=== PATIENT | male | born 1985 | race African-American/Black ===

== ENCOUNTER 2017-08-07 08:45 | Emergency (ER) | payer BC, OTHER ==
--- NOTE | 2017-08-07 08:50 | EDM.PDOC ---
ED HPI GENERAL MEDICAL PROBLEM - General Stated Complaint: RIGHT LEG PAIN Time Seen by Provider: 08/07/17 08:49 Source of Information: Reports: Patient History Limitations: Reports: No Limitations - History of Present Illness INITIAL COMMENTS - FREE TEXT/NARRATIVE: History of present illness: []Patient drove back from [place] yesterday and when he got the car he felt sharp right hip pain radiating to his right lateral thigh down to his knee. He denies any tingling or injury. Patient denies any lumbar pain, trauma, urinary or fecal incontinence, leg swelling or fevers. Review of systems: As per history of present illness and below otherwise all systems reviewed and negative. Past medical history: As per history of present illness and as reviewed below otherwise noncontributory. Surgical history: As per history of present illness and as reviewed below otherwise noncontributory. Social history: No reported history of drug or alcohol abuse. Family history: As per history of present illness and as reviewed below otherwise noncontributory. Physical exam: General: Well developed, well nourished in NAD HEENT: Atraumatic, normocephalic, pupils reactive, negative for conjunctival pallor or scleral icterus, mucous membranes moist, throat clear, neck supple, nontender, trachea midline. Lungs: Clear to auscultation, breath sounds equal bilaterally, chest nontender. Heart: S1S2, regular, negative for clicks, rubs, or JVD. Abdomen: Soft, nondistended, nontender. Negative for masses or hepatosplenomegaly. Negative for costovertebral tenderness. No vertebral tenderness to palpation Pelvis: Stable nontender. Genitourinary: Deferred. Rectal: Deferred. Extremities: Atraumatic, pain with movement of the hip, negative for cords or calf pain. Neurovascular unremarkable. Neuro: Awake, alert, oriented. Cranial nerves II through XII unremarkable. Cerebellum unremarkable. Motor and sensory unremarkable throughout. Exam nonfocal. Diagnostics: []X-ray right hip negative Therapeutics: []Toradol for pain Impression: []Right-sided sciatica Plan: []Diclofenac and Flexeril, follow-up with primary care return if symptoms worsen or change. Definitive disposition and diagnosis as appropriate pending reevaluation and review of above. Right Upper Leg Pain Score (Numeric/FACES): 9 - Related Data Allergies Allergy/AdvReac Type Severity Reaction Status Date / Time No Known Allergies Allergy Verified 08/07/17 08:58 Home Meds: Home Meds Cyclobenzaprine [Flexeril] 10 mg PO BID PRN #12 tab 08/07/17 [Rx] Diclofenac Sodium [IJD: Diclofenac Sodium] 75 mg PO .TWICE DAILY W MEALS PRN # 20 tab.ec 08/07/17 [Rx] Past Medical History - Past Health History Medical/Surgical History: Denies Medical/Surgical History HEENT History: Reports: None Cardiovascular History: Reports: None Respiratory History: Reports: None Gastrointestinal History: Reports: None Genitourinary History: Reports: None Musculoskeletal History: Reports: None Neurological History: Reports: None Psychiatric History: Reports: None Endocrine/Metabolic History: Reports: None Hematologic History: Reports: None Immunologic History: Reports: None Oncologic (Cancer) History: Reports: None Dermatologic History: Reports: None - Infectious Disease History Infectious Disease History: Reports: Chicken Pox - Past Surgical History Head Surgeries/Procedures: Reports: None Social & Family History - Family History Family Medical History: Noncontributory - Tobacco Use Smoking Status *Q: Never Smoker Second Hand Smoke Exposure: No - Alcohol Use Days Per Week of Alcohol Use: 2 Number of Drinks Per Day: 2 Total Drinks Per Week: 4 - Recreational Drug Use Recreational Drug Use: No ED ROS GENERAL - Review of Systems Review Of Systems: See Below (See history of present illness) ED EXAM, GI/ABD - Physical Exam Exam: See Below (See history of present illness) Course - Vital Signs Last Recorded V/S: Last Vital Signs Temp 96.4 F 08/07/17 08:54 Pulse 90 08/07/17 08:54 Resp 18 08/07/17 08:54 BP 105/69 08/07/17 08:54 Pulse Ox 98 08/07/17 08:54 - Orders/Labs/Meds Orders: Active Orders 24 hr Category Date Time Status Hip Min 2V or 3V w Pelvis Rt [CR] Stat Exams 08/07/17 09:06 Taken Meds: Medications Discontinued Medications Generic Name Dose Route Start Last Admin Trade Name Freq PRN Reason Stop Dose Admin Ketorolac Tromethamine 60 mg 08/07/17 09:16 08/07/17 09:36 Toradol IM 08/07/17 09:17 60 mg ONETIME ONE Administration Departure - Departure Time of Disposition: 10:03 Disposition: Home, Self-Care 01 Condition: Good Clinical Impression: Right sided sciatica - Discharge Information Prescriptions: Cyclobenzaprine [Flexeril] 10 mg PO BID PRN #12 tab PRN Reason: Pain Diclofenac Sodium [IJD: Diclofenac Sodium] 75 mg PO .TWICE DAILY W MEALS PRN # 20 tab.ec PRN Reason: Pain Referrals: PCP,None [Primary Care Provider] - - My Orders Last 24 Hours: My Active Orders 08/07/17 09:06 Hip Min 2V or 3V w Pelvis Rt [CR] Stat - Assessment/Plan Last 24 Hours: My Active Orders 08/07/17 09:06 Hip Min 2V or 3V w Pelvis Rt [CR] Stat
[2017-08-07] MEDS ORDERED: Ketorolac 60 MG/2 ML SDV IM ONE (09:16)
[2017-08-07 10:24] VITALS: BP 101/67
--- NOTE | 2017-08-07 10:26 | CR ---
EXAMINATION: Pelvis and right hip HISTORY: Pain COMPARISON: CT dated 06/13/2015 TECHNIQUE: AP pelvis and 2 views of the right hip FINDINGS: There is no acute osseous abnormality, dislocation, or fracture. Bone mineralization and mary anne int spaces appear normal. The SI joints are symmetric. Hip joint spaces are preserved. IMPRESSION: No acute osseous abnormality identified.
== END 2017-08-07 10:20 | disposition home or self-care (01) ==
LOC: MW.ED 08:45
DX: M54.31 Sciatica, right side (principal)
CPT/HCPCS: 73502; 96372; 99283; J1885